=== PATIENT | female | born 1955 | race Caucasian/White ===

== ENCOUNTER → 2017-05-27 | Outpatient (CLI) | payer OTHER ==
[~2017-05-27] MED LIST: AMBIEN10 MG PO; CIPRO PO; DYAZIDE 37.5/251 CAP PO; LIPITOR PO; LISINOPRIL PO; OMEPRAZOLE20 M2 PO; PHENERGAN PO; SYNTHROID PO; TRAMADOL HCL200 MG PO; ZANTAC PO; ZOLOFT100 MG PO
--- NOTE | ~2017-05-27 | MY11 ---
[facility] A Service of [facility] RADIOLOGY TEXT RESULTS PATIENT: KATLYN BLAKELY LOCATION: [facility] : 55 UNIT #: [id number] AGE: [address]: Luciano Dia MD SEX: F ORDER DR: [id number] [address] [address] [id number] MR#: [id number] #: [id number] NAME: KATLYN BLAKELY : 1955 SEX: F STUDY DATE/TIME: 05/27/2017 11:31 UNIT: [facility] ROOM: STUDY DESCRIPTION: MY Mammogram Screening Dig Faheem Attending Physician: Luciano Dia M.D. Referring Physician: Luciano Dia M.D. Ordering Physician: Luciano Dia M.D. Primary Care Physician: Luciano Dia M.D. MEDICAL IMAGING REPORT This report is preliminary unless electronic signature is present. EXAM Digital screening mammogram, 05/27/2017, [facility]. HISTORY 61-year-old woman positive family history, maternal grandmother and maternal aunt postmenopausal. Annual screen. COMPARISON Outside mammograms now available date 06/27/2012, 09/27/2013. TECHNIQUE Digital imaging of each breast was completed utilizing screening protocol. Review includes FDA-approved CAD device. FINDINGS Breast parenchyma is fatty replaced. There is no breast mass. There are no suspicious microcalcifications and no architectural deformity. Mild duct prominence noted in each breast. IMPRESSION Negative mammogram. Annual screening recommended. Patients over the age of 40 are entered into a reminder system with target due date for the next mammogram. A result letter will also be sent to the patient. BIRADS: 1 Negative Dictated by... Romero Mullen M.D. [facility] A Service [facility] RADIOLOGY TEXT RESULTS PATIENT: KATLYN BLAKELY LOCATION: [facility] : 55 UNIT #: [id number] AGE: [address]: Luciano Dia MD SEX: F ORDER DR: THIS IS AN ELECTRONICALLY VERIFIED REPORT Romero Mullen M.D. at 06/02/2017 8:07 AM AKASH/ashtyn TD: 05/30/2017 16:00 JOB #: [id number] MEDICAL IMAGING REPORT Page 1 of 1
== END | disposition home or self-care (01) ==
LOC: SMAM 10:45
DX: Z12.31 Encounter for screening mammogram for malignant neoplasm of breast (principal); Z80.3 Family history of malignant neoplasm of breast
CPT/HCPCS: G0202